=== PATIENT | female | born 1985 | race Caucasian/White ===

== ENCOUNTER 2017-01-17 07:27 | Emergency (ER) | payer OTHER ==
[2017-01-17] MEDS ORDERED: NS 0.9% 1000 ML* 1,000 ML IV ONE (07:44)
[2017-01-17] MEDS ORDERED: Morphine INJ* 4 MG/ML 1 ML SYRINGE IV ONE ×2 (07:44→09:14)
[2017-01-17] MEDS ORDERED: Ondansetron INJ* 2 MG/ML VIAL IV ONE (07:44)
[2017-01-17] MEDS ORDERED: Ketorolac INJ* 30 MG/ML 1 ML VIAL IV ONE (07:44)
[2017-01-17] MEDS ORDERED: Ketorolac INJ* 30 MG/ML 1 ML VIAL ONE (07:49)
[2017-01-17] MEDS ORDERED: Ondansetron INJ* 2 MG/ML VIAL ONE (07:49)
[2017-01-17 08:05] LABS: Hematocrit 40 % (35-47); Hemoglobin 13.6 g/dl (12.0-16.0); Mean Corpuscular HGB Conc 34 g/dl (31-36); Mean Corpuscular Hemoglobin 28 pg (27-31); Mean Corpuscular Volume 81 fL (80-97); Mean Platelet Volume 9 um3 (7.4-10.4); Red Blood Count 4.93 10^6/ul (4.0-5.4); Red Cell Distribution Width 13 % (10.5-15); White Blood Count 9.1 10^3/ul (3.5-10.8)
[2017-01-17 08:12] LABS: Urine Bacteria Absent (Absent); Urine Bilirubin Negative (Negative); Urine Glucose Negative (Negative); Urine Nitrite Negative (Negative)
--- NOTE | 2017-01-17 08:34 | RAD ---
INDICATION: Right flank and right lower quadrant abdominal pain. COMPARISON: There are no prior studies available for comparison. TECHNIQUE: A CT scan of the abdomen and pelvis was performed without intravenous or oral contrast. Contiguous axial sections were obtained from the lung bases through the symphysis pubis. Images were reconstructed in the coronal and sagittal planes. FINDINGS: The lung bases are clear. No pleural effusion is present. The liver and spleen are moderately enlarged. The liver is decreased in attenuation consistent with fatty infiltration. No significant focal abnormality is seen on this noncontrast study. There are gallstones present. The gallbladder is nondistended. The pancreas appears to be within normal limits. The adrenal glands and left kidney appear normal. The right kidney is slightly enlarged. There is dilatation of the right renal calyces, renal pelvis and ureter into the inferior portion of the pelvis. There is a small 2.5 mm calcification located in the region of the right ureterovesical junction. There is moderate to severe right hydronephrosis. The aorta is normal in caliber without significant calcific plaque. No significant enlarged retroperitoneal lymph nodes are seen. The stomach, small and large bowel appear nondistended. The appendix is within normal limits. There is no evidence for diverticulitis or colitis. There is a periumbilical hernia containing fat. The uterus is anteverted and normal in size. There is a trace amount of free intraperitoneal fluid in the cul-de-sac. There is a 3.6 x 2.5 cm left ovarian cyst. No free intraperineal air is seen. No significant focal osseous abnormality is seen. IMPRESSION: 1. MODERATE TO SEVERE RIGHT HYDRONEPHROSIS LIKELY SECONDARY TO A SMALL CALCULUS AT THE RIGHT URETEROVESICAL JUNCTION. 2. CHOLELITHIASIS. 3. HEPATOSPLENOMEGALY AND HEPATIC STEATOSIS. 4. 3.6 CM LEFT OVARIAN CYST.
[2017-01-17 09:10] LABS: ALT 17 U/L (7-52); AST 14 U/L (13-39); Albumin 4.1 g/dL (3.2-5.2); Alkaline Phosphatase 44 U/L (34-104); Anion Gap 5 mmol/L (2-11); BUN/Creatinine Ratio 17.6 (8-20); Blood Urea Nitrogen 13 mg/dL (6-24); C Reactive Protein 43.06 mg/L (< 5.00); CO2 Carbon Dioxide 26 mmol/L (22-32); Calcium 8.9 mg/dL (8.6-10.3); Chloride 105 mmol/L (101-111); EGFR African American 118.5 (>60); EGFR Non-African American 92.1 (>60); Glucose 125 mg/dL (70-100); Lipase 15 U/L (11.0-82.0); Potassium 3.9 mmol/L (3.5-5.0); Sodium 136 mmol/L (133-145); Total Protein 7.1 g/dL (6.4-8.9)
[2017-01-17] MEDS ORDERED: Tamsulosin CAP* 0.4 MG PO ONE (09:14)
[2017-01-17 10:05] VITALS: BP 135/68
--- NOTE | 2017-01-17 15:06 | ED ---
Kalina Draper Edward, scribed for Jeff Alfaro MD on 01/17/17 at 0737 . GI/ HPI - HPI Summary HPI Summary: 31 y/o female presents to the ED c/o sudden onset, constant R side flank pain radiating the front, starting at 05:00 this morning and getting progressively worse. The pain is rated 8/10 in severity at triage. She got up to urinate at 05 :00 and the pain started when she got back in bed. The pain is aggravated with movement and alleviated with laying on her R side. Pt is hot. Associated sx: urgency but unable to urinate, nausea. No blood in her urine. No PMHx UTI, kidney stone. No SHx. No relevant PMHx. LNMP 2 weeks ago. FHx kidney stones - grandmother. - History of Current Complaint Chief Complaint: EDFlankPain Stated Complaint: FLANK PAIN Hx Obtained From: Patient Hx Last Menstrual Period: 01/17/16 Onset/Duration: Started Hours Ago, Still Present Timing: Constant Severity: Moderate Current Severity: Severe Pain Intensity: 8 Location of Pain: Radiates to: - Groin, Flank - R Associated Signs and Symptoms: Positive: Nausea, Other: - Urgency, hot Aggravating Factor(s): Movement Alleviating Factor(s): Position - Lying on R side - Allergy/Home Medications Allergies/Adverse Reactions: Allergies Allergy/AdvReac Type Severity Reaction Status Date / Time No Known Allergies Allergy Verified 01/17/17 08:07 PMH/Surg Hx/FS Hx/Imm Hx Previously Healthy: No Respiratory History: Reports: Hx Asthma - exercise induced Sensory History: Denies: Hx Contacts or Glasses Opthamlomology History: Denies: Hx Contacts or Glasses - Surgical History Surgery Procedure, Year, and Place: None Infectious Disease History: Denies: Traveled Outside the [place] in Last 30 Days - Family History Known Family History: Positive: Other - grandmother- tubal ligation, grandmother - kidney stones - Social History Alcohol Use: None Hx Substance Use: No Substance Use Type: Reports: None Hx Tobacco Use: No Smoking Status (MU): Never Smoked Tobacco Have You Smoked in the Last Year: No Review of Systems Constitutional: Negative Eyes: Negative ENT: Negative Cardiovascular: Negative Respiratory: Negative Gastrointestinal: Negative Genitourinary: Negative Musculoskeletal: Negative Skin: Negative Neurological: Negative Psychological: Normal All Other Systems Reviewed And Are Negative: Yes Physical Exam - Summary Physical Exam Summary: The patient is well-nourished in mild distress and in no acute pain. The skin is warm and dry and skin color reflects adequate perfusion. HEENT: The head is normocephalic and atraumatic. The pupils are equal and reactive. The conjunctivae are clear and without drainage. Nares are patent and without drainage. Mouth reveals moist mucous membranes and the throat is without erythema and exudate. The external ears are intact. The ear canals are patent and without drainage. The tympanic membranes are intact. Neck is supple with full range of motion and non-tender. There are no carotid bruits. There is no neck vein distension. Respiratory: Chest is non-tender. Lungs are clear to auscultation and breath sounds are symmetrical and equal. Cardiovascular: Hear is regular rate and rhythm. There is no murmur or rub auscultated. There is no peripheral edema. Unable to detect distal pulses due to artificial nail bermudian. Abdomen: The abdomen is soft and non-tender. There are normal bowel sounds heard in all four quadrants and there is no organomegaly palpated. There is mild RLQ tenderness. There is R CVA tenderness. Musculoskeletal: There is no back pain noted. Extremities are non-tender with full range of motion. There is good capillary refill. There is no peripheral edema or calf tenderness elicited. Neurological: Patient is alert and oriented to person, place and time. The patient has symmetrical motor strength in all four extremities. Cranial nerves are grossly intact. Deep tendon reflexes are symmetrical and equal in all four extremities. Psychiatric: The patient has an appropriate affect and does not exhibit any anxiety or depression. Triage Information Reviewed: Yes Vital Signs On Initial Exam: Initial Vitals Temp Pulse Resp BP Pulse Ox 97.9 F 87 20 145/97 99 01/17/17 07:28 01/17/17 07:28 01/17/17 07:28 01/17/17 07:28 01/17/17 07:28 Vital Signs Reviewed: Yes Diagnostics - Vital Signs Vital Signs Temp Pulse Resp BP Pulse Ox 01/17/17 07:28 97.9 F 87 20 145/97 99 - Laboratory Lab Results: Lab Results 01/17/17 01/17/17 01/17/17 Range/Units 07:55 07:55 07:55 WBC 9.1 (3.5-10.8) 10^3/ul RBC 4.93 (4.0-5.4) 10^6/ul Hgb 13.6 (12.0-16.0) g/dl Hct 40 (35-47) % MCV 81 (80-97) fL MCH 28 (27-31) pg MCHC 34 (31-36) g/dl RDW 13 (10.5-15) % Plt Count 188 (150-450) 10^3/ul MPV 9 (7.4-10.4) um3 Neut % (Auto) 71.7 (38-83) % Lymph % (Auto) 20.6 L (25-47) % Cotton % (Auto) 6.1 (1-9) % Eos % (Auto) 1.1 (0-6) % Baso % (Auto) 0.5 (0-2) % Absolute Neuts (auto) 6.5 (1.5-7.7) 10^3/ul Absolute Lymphs (auto) 1.9 (1.0-4.8) 10^3/ul Absolute Monos (auto) 0.6 (0-0.8) 10^3/ul Absolute Eos (auto) 0.1 (0-0.6) 10^3/ul Absolute Basos (auto) 0 (0-0.2) 10^3/ul Absolute Nucleated RBC 0.01 10^3/ul Nucleated RBC % 0.1 Sodium 136 (133-145) mmol/L Potassium 3.9 (3.5-5.0) mmol/L Chloride 105 (101-111) mmol/L Carbon Dioxide 26 (22-32) mmol/L Anion Gap 5 (2-11) mmol/L BUN 13 (6-24) mg/dL Creatinine 0.74 (0.51-0.95) mg/dL Est GFR ( Amer) 118.5 (>60) Est GFR (Non-Af Amer) 92.1 (>60) BUN/Creatinine Ratio 17.6 (8-20) Glucose 125 H (70-100) mg/dL Lactic Acid 0.9 (0.5-2.0) mmol/L Calcium 8.9 (8.6-10.3) mg/dL Total Bilirubin 0.40 (0.2-1.0) mg/dL AST 14 (13-39) U/L ALT 17 (7-52) U/L Alkaline Phosphatase 44 (34-104) U/L C-Reactive Protein 43.06 H (< 5.00) mg/L Total Protein 7.1 (6.4-8.9) g/dL Albumin 4.1 (3.2-5.2) g/dL Globulin 3.0 (2-4) g/dL Albumin/Globulin Ratio 1.4 (1-3) Lipase 15 (11.0-82.0) U/L Beta HCG, Quant < 0.60 mIU/mL Urine Color Urine Appearance Urine pH (5-9) Ur Specific Whitney (1.010-1.030) Urine Protein (Negative) Urine Ketones (Negative) Urine Blood (Negative) Urine Nitrate (Negative) Urine Bilirubin (Negative) Urine Urobilinogen (Negative) Ur Leukocyte Esterase (Negative) Urine WBC (Auto) (Absent) Urine RBC (Auto) (Absent) Ur Squamous Epith Cells (Absent) Urine Bacteria (Absent) Urine Glucose (Negative) 01/17/17 Range/Units 07:55 WBC (3.5-10.8) 10^3/ul RBC (4.0-5.4) 10^6/ul Hgb (12.0-16.0) g/dl Hct (35-47) % MCV (80-97) fL MCH (27-31) pg MCHC (31-36) g/dl RDW (10.5-15) % Plt Count (150-450) 10^3/ul MPV (7.4-10.4) um3 Neut % (Auto) (38-83) % Lymph % (Auto) (25-47) % Cotton % (Auto) (1-9) % Eos % (Auto) (0-6) % Baso % (Auto) (0-2) % Absolute Neuts (auto) (1.5-7.7) 10^3/ul Absolute Lymphs (auto) (1.0-4.8) 10^3/ul Absolute Monos (auto) (0-0.8) 10^3/ul Absolute Eos (auto) (0-0.6) 10^3/ul Absolute Basos (auto) (0-0.2) 10^3/ul Absolute Nucleated RBC 10^3/ul Nucleated RBC % Sodium (133-145) mmol/L Potassium (3.5-5.0) mmol/L Chloride (101-111) mmol/L Carbon Dioxide (22-32) mmol/L Anion Gap (2-11) mmol/L BUN (6-24) mg/dL Creatinine (0.51-0.95) mg/dL Est GFR ( Amer) (>60) Est GFR (Non-Af Amer) (>60) BUN/Creatinine Ratio (8-20) Glucose (70-100) mg/dL Lactic Acid (0.5-2.0) mmol/L Calcium (8.6-10.3) mg/dL Total Bilirubin (0.2-1.0) mg/dL AST (13-39) U/L ALT (7-52) U/L Alkaline Phosphatase (34-104) U/L C-Reactive Protein (< 5.00) mg/L Total Protein (6.4-8.9) g/dL Albumin (3.2-5.2) g/dL Globulin (2-4) g/dL Albumin/Globulin Ratio (1-3) Lipase (11.0-82.0) U/L Beta HCG, Quant mIU/mL Urine Color Yellow Urine Appearance Cloudy Urine pH 5.0 (5-9) Ur Specific Whitney 1.023 (1.010-1.030) Urine Protein Negative (Negative) Urine Ketones Negative (Negative) Urine Blood 3+ H (Negative) Urine Nitrate Negative (Negative) Urine Bilirubin Negative (Negative) Urine Urobilinogen Negative (Negative) Ur Leukocyte Esterase Trace H (Negative) Urine WBC (Auto) Trace(0-5/hpf) (Absent) Urine RBC (Auto) 3+(>10/hpf) H (Absent) Ur Squamous Epith Cells Present H (Absent) Urine Bacteria Absent (Absent) Urine Glucose Negative (Negative) Result Diagrams: 01/17/17 07:55 01/17/17 07:55 Lab Statement: Any lab studies that have been ordered have been reviewed, and results considered in the medical decision making process. - CT ABD/PEL CT CT Interpretation: Positive (See Comments) - 1. MODERATE TO SEVERE RIGHT HYDRONEPHROSIS LIKELY SECONDARY TO A SMALL CALCULUS AT THE RIGHT URETEROVESICAL JUNCTION. 2. CHOLELITHIASIS. 3. HEPATOSPLENOMEGALY AND HEPATIC STEATOSIS. 4. 3.6 CM LEFT OVARIAN CYST. ED PHYSICIAN AGREEABLE. CT Interpretation Completed By: Radiologist Re-Evaluation - Re-Evaluation 1 Re-Evaluation Time: 21:12 Change: Worse - Pain is coming back. Discussed CT results. Pt will be given Flomax. GIGU Course/Dx - Course Assessment/Plan: 31 y/o female presents to the ED c/o sudden onset, constant R side flank pain radiating the front, starting at 05:00 this morning and getting progressively worse. The pain is rated 8/10 in severity at triage. She got up to urinate at 05:00 and the pain started when she got back in bed. The pain is aggravated with movement and alleviated with laying on her R side. Pt is hot. Associated sx: urgency but unable to urinate, nausea. No blood in her urine. No PMHx UTI, kidney stone. No SHx. No relevant PMHx. LNMP 2 weeks ago. FHx kidney stones - grandmother. 1. MODERATE TO SEVERE RIGHT HYDRONEPHROSIS LIKELY SECONDARY TO A SMALL CALCULUS AT THE RIGHT URETEROVESICAL JUNCTION. 2. CHOLELITHIASIS. 3. HEPATOSPLENOMEGALY AND HEPATIC STEATOSIS. 4. 3.6 CM LEFT OVARIAN CYST. ED PHYSICIAN AGREEABLE. Pt will be d/c home with instructions to strain her urine. - Diagnoses Differential Diagnoses - Female: Renal Colic, Urinary Tract Infection, Ureteral Calculi Provider Diagnoses: Right ureteral calculus, Hydronephrosis Discharge - Discharge Plan Condition: Stable Disposition: HOME Prescriptions: Tamsulosin CAP* [Flomax CAP*] 0.4 mg PO DAILY #7 cap oxyCODONE/Acetamin 5/325 MG* [Percocet 5/325 TAB*] 1 tab PO Q6H PRN #30 tab MDD 4 PRN Reason: pain Patient Education Materials: How to Strain Your Urine (ED), Hydronephrosis (ED) Referrals: Russell Block MD [Medical Doctor] - 3 Days (PLEASE F/U IN 2-3 DAYS) Additional Instructions: PLEASE STRAIN YOUR URINE INSTRUCTED The documentation as recorded by the Kalina peacock Edward accurately reflects the service I personally performed and the decisions made by , Jeff Alfaro MD.
== END 2017-01-17 10:20 | disposition home or self-care (01) ==
LOC: ED 07:27
DX: R11.0 Nausea (principal); N20.1 Calculus of ureter; N13.30 Unspecified hydronephrosis
CPT/HCPCS: 36415; 74176; 80053; 81003; 81015; 83605; 83690; 84702; 85025; 86140; 87086; 96374; 96375; 96376; 99283; J1885; J2270; J2405

== ENCOUNTER 2018-08-03 15:21 | Emergency (ER) | payer OTHER ==
--- NOTE | 2018-08-03 15:53 | ED ---
HPI Chest Pain - HPI Summary HPI Summary: Pt is a 32 y/o female who presents to the ED c/o CP. Yesterday morning she woke up with sub-sternal CP. Pt initially thought this was from a chest cold, since her children have been sick recently. She woke up this morning with the pain now radiating to her back. The pain has been constant and is rated a 6/10 in severity. Pt also c/o SOB, lightheadedness, and intermittent paresthesia and over-heating throughout her entire body. She denies any LE edema or calf pain, fever, cough, wheezing, headache, dizziness, diaphoresis, abdominal pain, N/V. Pt states she recently had a Mirena IUD placed 1 week ago. She had an EKG done by Dr. Gillette at work which was normal, however Dr. Gillette was concerned about a possible blood clot (DVT or PE). Pt has taken Ibuprofen without relief. She is accompanied by her friend. LNMP 07/13/18. FHx CAD and blood clots in maternal grandparents. Pt denies any smoking. NKDA. A1. PMHx borderline HTN and asthma, but denies any hx of thyroid disease, DM, blood clots , or GERD. - History of Current Complaint Time Seen by Provider: 08/03/18 15:42 Hx Obtained From: Patient Hx Last Menstrual Period: 07/13/18 Onset/Duration: Started Days Ago - 1, Atraumatic, Still Present Timing: Constant Initial Severity: Moderate Current Severity: Moderate Pain Intensity: 6 Pain Scale Used: 0-10 Numeric Chest Pain Location: Mid Sternal - sub-sternal Chest Pain Radiates: Yes Chest Pain Radiates To:: Back Character: Pressure/Squeezing Aggravating Factor(s): Nothing Alleviating Factor(s): Nothing Associated Signs and Symptoms: Positive: Chest Pain, Tingling, Shortness of Breath, Lightheadedness, Back Pain. Negative: Headaches, Dizziness, Fever, Diaphoresis, Nausea, Cough, Calf Pain/Swelling, Vomiting, Wheezing - Risk Factors Pulmonary Embolism Risk Factors: Estrogen - Allergy/Home Medications Allergies/Adverse Reactions: Allergies Allergy/AdvReac Type Severity Reaction Status Date / Time metoclopramide [From Reglan] Allergy Unknown Verified 08/03/18 15:46 Reaction Details Home Medications: Home Medications Levonorgestrel (Iud) [Mirena IUD] 1 ea INTRAUTERI ONCE 08/03/18 [History Confirmed 08/03/18] PMH/Surg Hx/FS Hx/Imm Hx Endocrine/Hematology History: Denies: Hx Blood Disorders - neg: blood clots, Hx Diabetes, Hx Thyroid Disease Cardiovascular History: Reports: Hx Hypertension - borderline Respiratory History: Reports: Hx Asthma - exercise induced GI History: Denies: Hx Gastroesophageal Reflux Disease Sensory History: Denies: Hx Contacts or Glasses Opthamlomology History: Denies: Hx Contacts or Glasses - Surgical History Surgery Procedure, Year, and Place: T&A Infectious Disease History: No Infectious Disease History: Denies: Traveled Outside the [place] in Last 30 Days - Family History Known Family History: Positive: Cardiac Disease - maternal grandparent, Blood Disorder - blood clots - maternal grandparents, Other - grandmother- tubal ligation, grandmother - kidney stones - Social History Occupation: Employed Full-time Lives: With Family Alcohol Use: None Hx Substance Use: No Substance Use Type: Reports: None Hx Tobacco Use: No Smoking Status (MU): Never Smoked Tobacco Have You Smoked in the Last Year: No Review of Systems Positive: Other - over-heating. Negative: Fever, Skin Diaphoresis Positive: Chest Pain Positive: Shortness Of Breath. Negative: Cough, Other - neg: wheezing Negative: Abdominal Pain, Vomiting, Nausea Positive: no symptoms reported Positive: Other - neg: calf pain . Negative: Myalgia - LE, Edema - LE Skin: Negative Neurological: Other - Lightheadedness, NEGATIVE: dizziness Positive: Paresthesia - entire body. Negative: Headache Psychological: Normal All Other Systems Reviewed And Are Negative: Yes Physical Exam - Summary Physical Exam Summary: Appearance: Well-appearing, moderate pain distress, well-nourished Skin: Warm, color reflects adequate perfusion, dry Head: Normal Head/Face inspection, atraumatic Eyes: Conjunctiva clear ENT: Normal inspection Neck: Supple, no nodes, no JVD Respiratory: Lungs clear, normal breath sounds, no respiratory distress Cardio: RRR, No murmur, pulses normal, brisk capillary refill Abdomen: Soft, nontender Bowel sounds: Present Musculoskeletal: Strength Intact/ROM intact, no calf tenderness, no edema. Psychological: Normal Neuro: Alert, muscle tone normal, no focal deficit Triage Information Reviewed: Yes Vital Signs On Initial Exam: Initial Vitals Temp Pulse Resp BP Pulse Ox 98.3 F 91 18 141/93 99 08/03/18 15:36 08/03/18 15:36 08/03/18 15:36 08/03/18 15:36 08/03/18 15:36 Vital Signs Reviewed: Yes Diagnostics - Vital Signs Vital Signs Temp Pulse Resp BP Pulse Ox 08/03/18 15:36 98.3 F 91 18 141/93 99 - Laboratory Result Diagrams: 08/03/18 16:00 08/03/18 16:00 Lab Statement: Any lab studies that have been ordered have been reviewed, and results considered in the medical decision making process. - Radiology CXR Radiology Interpretation Completed By: Radiologist Summary of Radiographic Findings: NO ACTIVE CARDIOPULMONARY DISEASE IS NOTED. ED physician reviewed radiology report. - CT Chest/Thorax CTA CT Interpretation Completed By: Radiologist Summary of CT Findings: No evidence for pulmonary embolism. No acute intrathoracic process evident. Images through the upper abdomen are remarkable for prior cholecystectomy and hepatosteatosis as well as mild splenomegaly. ADDENDUM: The patient denies prior cholecystectomy. January 17, 2017 CT abdomen and pelvis with complete visualization of the gallbladder documents multiple calcified gallstones. Noted hyperdense structures at the level of the gallbladder fossa initially thought to represent surgical clips correspond with the stones. If clinically indicated the gallbladder could be further assessed with ultrasound. ED physician reviewed radiology report. - EKG 15:35 Cardiac Rate: NL - 84 bpm EKG Rhythm: Sinus Rhythm ST Segment: Normal Ectopy: None EKG Comparison: No Significant Change - As compared to 06/14/06. Summary of EKG Findings: An EKG at 15:35 reveals SR nml AV/IV CT, nml QTc, and nml axis. No acute changes. No STEMI. Re-Evaluation - Re-Evaluation First Eval Re-Evaluation Time: 17:33 Change: Improved Comment: Pt is pain free. Discussed information about CTA, and she will give Dr. Gillette the report. Chest Pain Course/Dx - Course Course Of Treatment: Pt is a 32 y/o female who presents to the ED c/o sub- sternal CP radiating to her back since yesterday. Pt also c/o SOB, lightheadedness, and intermittent paresthesia and over-heating throughout her entire body. She states she recently had a Mirena IUD placed 1 week ago. A physical exam was normal. A CXR was negative. A chest/thorax CTA was negative. An EKG was normal with a rate of 84 bpm. Troponin of 0.00. Pt medications reviewed this visit. Nurses notes reviewed. Allergies noted. Pt will be discharged with a final dx of chest pain. She is agreeable with this plan. - Chest Pain Differential Diagnosis/HQI/PQRI: ACS, Chest Wall, GI Disease, Lower Respiratory Infection, Pulmonary Embolism - Diagnoses Provider Diagnoses: Chest pain, Asymptomatic gallstones - Provider Notifications Discussed Care Of Patient With: Diony Peters Time Discussed With Above Provider: 17:22 Instructed by Provider To: Other - Spoke to radiologist about CTA reading, since it was read as cholecystectomy but pt denies this surgical hx. He states that compared to a report in 2017 he now realizes these are gall stones. He will add an addendum to the report. Discharge - Sign-Out/Discharge Documenting (check all that apply): Patient Departure - Discharge Patient Received Moderate/Deep Sedation with Procedure: No - Discharge Plan Condition: Stable Disposition: HOME Patient Education Materials: Chest Pain (ED) Referrals: Dina Gillette MD [Primary Care Provider] - 2 Days Additional Instructions: The tests we did in the Emergency Department today did not show any serious cause for chest pain. We have given you a copy of the CT report. Return to the ED with any new or worsening symptoms. - Billing Disposition and Condition Condition: STABLE Disposition: Home - Attestation Statements Document Initiated by Elina: Yes Documenting Scribe: Nathalia Frazier Provider For Whom Elina is Documenting (Include Credential): Heather Baugh MD Scribe Attestation: Nathalia Draper, scribed for Heather Baugh MD on 08/10/18 at 1150. Scribe Documentation Reviewed: Yes Provider Attestation: The documentation as recorded by the Nathalia peacock accurately reflects the service I personally performed and the decisions made by me, Heather Baugh MD Status of Scribe Document: Viewed
[2018-08-03] MEDS ORDERED: Aspirin 81 mg CHEW TAB* 81 MG TAB.CHEW PO ONE (15:57)
[2018-08-03 16:10] LABS: ABS Basophils 0 10^3/ul (0-0.2); ABS Eosinophils 0.1 10^3/ul (0-0.6); ABS Lymphocytes 1.9 10^3/ul (1.0-4.8); ABS Monocytes 0.5 10^3/ul (0-0.8); ABS Neutrophils 4.9 10^3/ul (1.5-7.7); ABS Nucleated RBC 0 10^3/ul; Eosinophil % 1.8 %; Hematocrit 38 % (33-41); Hemoglobin 12.8 g/dL (12.0-16.0); Lymphocyte % 25.7 %; Mean Corpuscular HGB Conc 33 g/dL (31-36); Mean Corpuscular Hemoglobin 26 pg (27-31); Mean Corpuscular Volume 79 fL (80-97); Mean Platelet Volume 8.1 fL (7.4-10.4); Nucleated Red Blood Cells % 0; Platelet Count 205 10^3/uL (150-450); Red Blood Count 4.87 10^6 /uL (3.70-4.87); Red Cell Distribution Width 14 % (10.5-15); White Blood Count 7.4 10^3/uL (3.5-10.8)
[2018-08-03 16:18] LABS: Activated Partial Thrombo Time 31.3 seconds (26.0-36.3); INR 1.09 (0.77-1.02)
[2018-08-03 16:27] LABS: ALT 22 U/L (7-52); AST 14 U/L (13-39); Albumin 4.2 g/dL (3.2-5.2); Albumin/Globulin Ratio 1.5 (1-3); Alkaline Phosphatase 49 U/L (34-104); Anion Gap 4 mmol/L (2-11); BUN/Creatinine Ratio 17.7 (8-20); Blood Urea Nitrogen 14 mg/dL (6-24); CO2 Carbon Dioxide 29 mmol/L (22-32); Calcium 9.2 mg/dL (8.6-10.3); Chloride 104 mmol/L (101-111); Creatine Kinase 46 U/L (10-223); EGFR African American 102.7 (>60); EGFR Non-African American 84.9 (>60); Globulin 2.8 g/dL (2-4); Glucose 112 mg/dL (70-100); Potassium 3.7 mmol/L (3.5-5.0); Sodium 137 mmol/L (135-145)
[2018-08-03 16:32] LABS: CKMB ng/mL 0.7 ng/mL (0.6-6.3)
[2018-08-03 16:35] LABS: HCG Pregnancy < 0.60 mIU/mL
[2018-08-03] MEDS ORDERED: Iohexol 350* (CONTRAST) 500 ML MDV IV ONE (16:35)
[2018-08-03 16:38] LABS: T4, Total 7.44 mcg/dL (6.09-12.23)
[2018-08-03 16:42] LABS: TSH (Thyroid Stimulating Horm) 0.69 mcIU/mL (0.34-5.60)
[2018-08-03 17:39] VITALS: BP 124/75
== END 2018-08-03 17:42 | disposition home or self-care (01) ==
LOC: ED 15:21
DX: R07.2 Precordial pain (principal); R06.02 Shortness of breath; R42 Dizziness and giddiness; R20.2 Paresthesia of skin; Z88.8 Allergy status to other drugs, medicaments and biological substances
CPT/HCPCS: 36415; 71045; 71275; 80053; 82550; 82553; 83605; 83735; 83880; 84436; 84443; 84484; 84702; 85025; 85379; 85610; 85730; 93005; 99283; A9270-GY; Q9967

== ENCOUNTER 2020-09-13 10:15 | Inpatient (IN) ==
[2020-09-13] MEDS ORDERED: Buffered Lidocaine 1% SYRIN 1 ml INTRADERM ONE (11:07)
[2020-09-13] MEDS ORDERED: Lactated Ringers 1000 ml BAG 1,000 ML IV ONE ×2 (11:07→16:11)
[2020-09-13 11:15] LABS: Urine Benzodiazepine Screen None Detected (None Detect); Urine Opiates Screen None Detected (None Detect)
[2020-09-13 11:59] LABS: ABS Lymphocytes 1.3 10^3/ul (1.0-4.8); ABS Monocytes 0.5 10^3/ul (0-0.8); ABS Neutrophils 6.7 10^3/ul (1.5-7.7); Eosinophil % 0.4 %; Hematocrit 29 % (35-47); Hemoglobin 9.9 g/dL (12.0-16.0); Lymphocyte % 15.7 %; Mean Corpuscular HGB Conc 34 g/dL (31-36); Mean Corpuscular Hemoglobin 26 pg (27-31); Mean Corpuscular Volume 77 fL (80-97); Mean Platelet Volume 9.2 fL (7.4-10.4); Platelet Count 148 10^3/uL (150-450); Red Blood Count 3.75 10^6 /uL (3.70-4.87); Red Cell Distribution Width 14 % (10-15); White Blood Count 8.6 10^3/uL (3.5-10.8)
[2020-09-13] MEDS ORDERED: Oxytocin in LR 20 UNITS/1,000 ML BAG IVPB SCH ×2 (12:00→19:00)
[2020-09-13] MEDS ORDERED: Lactated Ringers 1000 ml BAG 1,000 ML IV SCH ×3 (12:00→19:00)
[2020-09-13] MEDS ORDERED: OBEPIDURAL 250 ML EPIDURAL ONE (15:15)
[2020-09-13] MEDS ORDERED: Sodium Citrate/Citric Acid LIQ 15 ML UDC PO PRN (16:11)
[2020-09-13] MEDS ORDERED: Phenylephrine 40 mcg/mL 10mL (400mcg) SYRINGE IV PUSH PRN ×2 (16:11)
[2020-09-13] MEDS ORDERED: Lactated Ringers 1000 ml BAG 500 ML IV PRN ×2 (16:11)
[2020-09-13] MEDS ORDERED: OBEPIDURAL 250 ML EPIDURAL SCH (17:00)
[2020-09-13] MEDS ORDERED: Witch Hazel PAD JAR TOPICAL PRN (18:57)
[2020-09-13] MEDS ORDERED: Dibucaine 1% OINT 28.35 GM TUBE PR PRN (18:57)
[2020-09-13] MEDS ORDERED: Glycerin ADULT 2.4 gm SUPP PR PRN (18:57)
[2020-09-14 06:46] LABS: ABS Lymphocytes 1.6 10^3/ul (1.0-4.8); ABS Monocytes 0.6 10^3/ul (0-0.8); ABS Neutrophils 6.6 10^3/ul (1.5-7.7); Eosinophil % 0.5 %; Hematocrit 26 % (35-47); Hemoglobin 8.7 g/dL (12.0-16.0); Lymphocyte % 17.5 %; Mean Corpuscular HGB Conc 34 g/dL (31-36); Mean Corpuscular Hemoglobin 26 pg (27-31); Mean Corpuscular Volume 77 fL (80-97); Mean Platelet Volume 8.7 fL (7.4-10.4); Platelet Count 141 10^3/uL (150-450); Red Blood Count 3.33 10^6 /uL (3.70-4.87); Red Cell Distribution Width 14 % (10-15); White Blood Count 8.9 10^3/uL (3.5-10.8)
[2020-09-15 08:05] VITALS: BP 127/70
== END 2020-09-15 13:58 | disposition home or self-care (01) | DRG 560 ==
LOC: MCHOBOUT 10:15 → MCHOB 11:12
PROVIDERS: ADMIT Obstetrics & Gynecology; ATTEND Midwife